=== PATIENT | male | born 1955 | race Caucasian/White ===

== ENCOUNTER → 2023-04-08 | Outpatient (CLI) | payer MEDICARE ==
[2023-04-08 15:27] LABS: Blood Urea Nitrogen 17.4 mg/dL (9.0-27.0)
== END | disposition home or self-care (01) ==
LOC: LABWHC1 10:50
PROVIDERS: ATTEND Thoracic Surgery (Cardiothoracic Vascular Surgery)
DX: L98.493 Non-pressure chronic ulcer of skin of other sites with necrosis of muscle (principal)
CPT/HCPCS: 36415; 82550; 84520

== ENCOUNTER → 2023-04-10 | Outpatient (CLI) | payer MEDICARE ==
[2023-04-10 10:28] LABS: African American GFR (CKD) >90 (>60 ml/min/1.73 sqM); Blood Urea Nitrogen 17 mg/dL (9-20); Non-African American GFR(CKD) >90 (>60 ml/min/1.73 sqM)
--- NOTE | 2023-04-10 15:35 | CT ---
EXAMINATION TYPE: CT chest w con DATE OF EXAM: 04/10/2023 COMPARISON: None HISTORY: Post op triple bypass infection of sternum. CT DLP: 688 mGycm Automated exposure control for dose reduction was used. TECHNIQUE: CT scan of the chest is performed with IV Contrast, patient injected with 100ml mL of Isovue 300. AL P Images are created on CT scanner and reviewed. 3D reconstructed images are created on an [employer] workstation and reviewed. FINDINGS: The lungs are clear of consolidative/airspace density or abnormal interstitial density. There is no pleural effusion, pleural thickening or pneumothorax. The great vessels chest are normal. There are mild borderline enlarged right paratracheal lymph nodes and precarinal lymph nodes. There is an enlarged 2.5 cm subcarinal lymph node. There are postsurgical changes of the sternum but there is osteolytic destruction of the inferior asp ect of the sternum consistent with the history of osteomyelitis. There is no discrete fluid collectio n or abscess. There is mild adjacent soft tissue tissue swelling. There is no pericardial effusion. Limited scanning through the upper abdomen reveals no gross abnormality. IMPRESSION: 1. Postsurgical changes and destructive changes of the sternum consistent with the history of osteomy elitis of the sternum post surgery. 2. No discrete abscess. 3. mediastinal adenopathy as described above. The possibility of neoplasm is not excluded although th e possibility that the enlarged lymph nodes are reactive lymph nodes secondary to the sternal infecti on should be considered. Short-term follow-up is recommended.
== END | disposition home or self-care (01) ==
LOC: RADCTMAIN 09:27
PROVIDERS: ATTEND Thoracic Surgery (Cardiothoracic Vascular Surgery)
DX: T81.32XA Disruption of internal operation (surgical) wound, not elsewhere classified, initial encounter (principal)
CPT/HCPCS: 82565; 84520; 71260; 36415; Q9967

== ENCOUNTER → 2024-10-04 | Outpatient (CLI) | payer MEDICARE ==
--- NOTE | 2024-10-12 16:48 | P.PCN ---
Date of Procedure: 10/04/24 Operative Findings: Home sleep study testing Date of service is 10/04/2024 History This is a 69-year-old male patient suspected to have obstructive sleep apnea with symptoms of snoring and sleep fragmentation chronic hypersomnia and sleepiness. Based on that, a home sleep study was requested. He has history of asbestos exposure, hypertension, coronary artery disease, diabetes mellitus type 2 and hypogonadism. Pertinent physical findings Body mass index is 32.7 with a weight of 215 pounds Technical description The [employer] ApneaLink system was used to complete his home sleep study. This is a type III home sleep study evaluation. The total recording duration was 7 hours and 9 minutes. The study started at 8:56 PM and ended at 4:05 AM. There was a total of 6 hours and 56 minutes of flow monitoring and 6 hours and 55 minutes of oxygen saturation monitoring and the results were adequate. Results Respiratory analysis showed a total of 134 obstructive apneas and 179 obstructive hypopneas. The resulting AHI was 45.1 consistent with severe SUZANNA. The patient also had central events and the central apnea index was recorded to be at 10.9. Oxygenation analysis The baseline pulse ox while awake was 93%. Average pulse ox during sleep was 92%. Lowest oxygen saturation was 73%. The patient spent approximately 1 hours and 10 minutes of sleep time below pulse ox of 89%. Cardiac summary Average heart rate was 73 with a minimum heart rate of 40 and a maximum rate of 91 Assessment Severe SUZANNA with an AHI of 45 with a component of mild central sleep apnea. Nocturnal oxygen desaturation secondary to above with a minimum pulse ox of 73% Chronic snoring Chronic hypersomnia and sleepiness and sleep fragmentation secondary to above. The patient's current [place] score is at 17 Diabetes mellitus type 2 Hypertension History of asbestos exposure Male hypogonadism Plan Based on the results, the patient will need a CPAP titration. This will be done in the sleep center as the patient is a complicated case of severe obstructive sleep apnea along with a mild central apnea. Implement good sleep hygiene measures Maintain regular sleep schedule Weight loss Will follow
== END ==
LOC: 3 N SLEEP 16:24
PROVIDERS: ATTEND Internal Medicine Critical Care Medicine
DX: G47.33 Obstructive sleep apnea (adult) (pediatric) (principal); E11.9 Type 2 diabetes mellitus without complications; E29.1 Testicular hypofunction; I10 Essential (primary) hypertension

== ENCOUNTER 2024-11-10 19:38 | Outpatient (CLI) | payer MEDICARE ==
--- NOTE | 2024-11-15 23:43 | P.PCN ---
Date of Procedure: 11/10/24 Operative Findings: CPAP titration report History This is a 69-year-old male patient suspected to have obstructive sleep apnea with symptoms of snoring and sleep fragmentation chronic hypersomnia and sleepiness. Based on that, a home sleep study was requested. He has history of asbestos exposure, hypertension, coronary artery disease, diabetes mellitus type 2 and hypogonadism. The patient underwent a home sleep study on 10/04/2024 and the patient was diagnosed having severe SUZANNA with an AHI of 45 with a mild central apnea component. The patient is coming in to undergo a CPAP titration. Pertinent physical findings Body mass index is 32.7 with a weight of 215 pounds Technical description The patient was studied using a standard complex polysomnography protocol that included recording of the Lead II EKG, Central, occipital and frontal EEG, right and left outer canthus EOG, submental EMG, right and left anterior tibialis EMG, respiratory airflow by thermocouple and or pressure/flow transducer, respiratory efforts by abdominal and thoracic PVDF belts, oxygen saturation by cable oximetry. Position by observation synchronized the PSG. Equipment used: [employer]. Stepwise CPAP titration was done to eliminate all obstructive respiratory events Sleep architecture The total recording duration was 356.5 minutes. The total sleep time was 221 minutes. The wake after sleep onset time was 100.5 minutes. The overall sleep efficiency was 62%. Latency to sleep onset was 42.5 minutes. The latency to REM sleep was 53 minutes. The sleep architecture was characterized by 14.3% stage I, 77.2% stage II, 0% stage III and a total of 14.7% REM sleep. The total arousal index was 15.7 Respiratory analysis The patient was started on CPAP therapy initially at a pressure of 7 cm of water and the pressure was gradually increased by increments of 1 cm to reach a maximum CPAP pressure of 12 cm of water. CPAP therapy was ineffective as the patient continued to have obstructive respiratory events. The patient had ongoing hypopneas. Based on that, the patient was switched to a BiPAP and utilize pressures were 15/11 with a maximum BiPAP pressure achieved being 18 over 14 cm of water. I carefully reviewed the CPAP and the BiPAP titration and I noted that the patient continued to have obstructive hypopneas at the very CPAP with the BiPAP pressures. The titration itself was not absolutely successful as the patient continued to have also some nocturnal oxygen desaturations. As such, this may end up being a complicated case. Based on the suboptimal titration, I am going to start the patient on a VPAP auto and evaluate his progress and do further adjustments based on his clinical response. Arousal summary A total of 58 arousals with an index of 15.7. The respiratory arousal index was 2.4 Periodic limb movement summary No significant preauricular wound identified. There is only 2. Agree with activity with arousals with an index of 0.5 Cardiac summary The average heart rate was 70 and the cardiac rhythm was sinus with frequent PVCs. Assessment Severe SUZANNA with an AHI of 45 with a component of mild central sleep apnea. Suboptimal titration with CPAP and BiPAP. CPAP therapy was ineffective due to ongoing obstructive hypopneas. BiPAP therapy was more effective although the patient continued to have nocturnal oxygen saturations and obstructive hypopneas. Sinus rhythm with frequent PVCs Chronic snoring Chronic hypersomnia and sleepiness and sleep fragmentation secondary to above. The patient's current [place] score is at 17 Diabetes mellitus type 2 Hypertension History of asbestos exposure Male hypogonadism Plan Treat this patient with a VPAP auto with an EPAP minimum of 5 and a maximum of 18 with a pressure support of 4 Provide the patient had a large size by Viter fullface mask Implement good sleep hygiene measures Maintain regular sleep schedule Weight loss Will follow Will see him back in the office in 30 to 90 days to assess clinical response and compliancy.
== END 2024-11-11 05:50 | disposition home or self-care (01) ==
LOC: 3 N SLEEP 19:38
PROVIDERS: ATTEND Internal Medicine Critical Care Medicine
DX: G47.33 Obstructive sleep apnea (adult) (pediatric) (principal); I49.3 Ventricular premature depolarization; E11.9 Type 2 diabetes mellitus without complications; I10 Essential (primary) hypertension; E29.1 Testicular hypofunction; Z99.89 Dependence on other enabling machines and devices; Z77.090 Contact with and (suspected) exposure to asbestos
CPT/HCPCS: 95811